=== PATIENT | female | born 1960 ===

== ENCOUNTER 2016-12-14 21:01 | Emergency (ER) | payer OTHER ==
[2016-12-14 21:50] VITALS: BMI 27.3
--- NOTE | 2016-12-14 21:54 | ED PDOC ---
HPI: General Adult Time Seen by Provider: 12/14/16 21:15 Chief Complaint (Provider): Throat Pain History Per: Patient History/Exam Limitations: no limitations Onset/Duration Of Symptoms: Days (x3 weeks) Current Symptoms Are (Timing): Still Present Additional Complaint(s): Cyndee Hillman is a 56 year old female that presents to the ED with a chief complaint of a burning sensation that radiates from her upper chest to her throat that she has been experiencing for the past three weeks. She states that when she tries to eat, it feels as though something is "blocking her from swallowing." PMD: Dr. Hennessy Past Medical History Reviewed: Historical Data, Nursing Documentation, Vital Signs Vital Signs: Last Vital Signs Temp 98 F 12/14/16 21:57 Pulse 76 12/14/16 21:57 Resp 16 12/14/16 21:57 BP 97/62 L 12/14/16 21:57 Pulse Ox 98 12/14/16 21:57 - Medical History PMH: Arthritis, Diabetes, Hypercholesterolemia - Family History Family History: States: Unknown Family Hx - Home Medications Home Medications: Ambulatory Orders Medication Instructions Recorded Famotidine [Pepcid] 20 mg PO BID #28 tab 12/14/16 - Allergies Allergies/Adverse Reactions: Allergies Allergy/AdvReac Type Severity Reaction Status Date / Time oxycodone [From OxyContin] Allergy SWELLING Verified 12/14/16 22:09 Review of Systems ENT: Positive for: Throat Pain (burning sensation) Cardiovascular: Positive for: Chest Pain (burning sensation in upper chest) Physical Exam - Reviewed Nursing Documentation Reviewed: Yes Vital Signs Reviewed: Yes - Physical Exam Appears: Positive for: Non-toxic, No Acute Distress Head Exam: Positive for: ATRAUMATIC, NORMOCEPHALIC Skin: Positive for: Normal Color, Warm ENT: Positive for: Normal ENT Inspection, Other (Uvula midline. No erythema. ) Cardiovascular/Chest: Positive for: Regular Rate, Rhythm. Negative for: Murmur Respiratory: Positive for: Normal Breath Sounds. 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 Negative for: Motor/Sensory Deficits Medical Decision Making Medical Decision Making: Impression: Throat Pain due to Acid reflux Plan: * EKG * Prednisone 60 mg PO * Reevaluation Scribe Attestation: Documented by Yashira Norman, acting as a scribe for Jane Graham PA-C. Provider Scribe Attestation: All medical record entries made by the Scribe were at my direction and personally dictated by me. I have reviewed the chart and agree that the record accurately reflects my personal performance of the history, physical exam, medical decision making, and the department course for this patient. I have also personally directed, reviewed, and agree with the discharge instructions and disposition. Disposition - Clinical Impression Clinical Impression: Acid reflux - Patient ED Disposition Is Patient to be Admitted: No Counseled Patient/Family Regarding: Diagnosis, Need For Followup, Rx Given - Disposition Referrals: Florian Corral MD, PhD [Staff Provider] - Disposition: Routine/Home Disposition Time: 22:17 Condition: GOOD Prescriptions: Famotidine [Pepcid] 20 mg PO BID #28 tab Instructions: Gastroesophageal Reflux Disease (ED)
[2016-12-14 21:57] VITALS: BP 97/62; PULSE 76; RESP 16; TEMP 98; O2SAT 98
--- NOTE | 2016-12-15 15:35 | CARD ---
APPROVED REPORT EKG Measurement Heart [id number] <Conclusion> Normal sinus rhythm Normal ECG
== END 2016-12-14 22:32 | disposition home or self-care (01) ==
LOC: H.ER 21:01
DX: K21.9 Gastro-esophageal reflux disease without esophagitis (principal); E11.9 Type 2 diabetes mellitus without complications; E78.00 Pure hypercholesterolemia, unspecified